=== PATIENT | male | born 1940 | race Caucasian/White ===

== ENCOUNTER → 2016-10-31 | Outpatient (CLI) | payer MEDICARE, BC ==
--- NOTE | 2016-10-31 15:37 | RADIOLOGY REPORT (SQ) ---
EXAM DESCRIPTION: KUB COMPLETED DATE/TIME: 10/31/2016 3:08 pm REASON FOR STUDY: CALCULUS OF KIDNEY N20.0 CALCULUS OF KIDNEY COMPARISON: 09/26/2015. NUMBER OF VIEWS: One view. TECHNIQUE: Supine radiographic image of the abdomen acquired. LIMITATIONS: None. FINDINGS: BOWEL GAS PATTERN: Normal bowel gas pattern. No dilated loops. CALCIFICATIONS: 8 mm stone in the lower pole left kidney. Prostatic calcification, pelvic arterial c alcifications and pelvic phleboliths. No definite ureteral stone. SOFT TISSUES: No gross mass or suggestion of organomegaly. HARDWARE: None in the abdomen. BONES: No acute fracture. No worrisome bone lesions. OTHER: No other significant finding. IMPRESSION: Left nephrolithiasis without evidence of ureteral stone. TECHNICAL DOCUMENTATION: JOB ID: [id number] [employer]- All Rights Reserved
== END ==
LOC: OD 14:53
PROVIDERS: ATTEND Nurse Practitioner Primary Care
DX: N20.0 Calculus of kidney (principal)
CPT/HCPCS: 74000

== ENCOUNTER 2016-12-17 09:18 | Day surgery (SDC) | payer MEDICARE, BC ==
--- NOTE | 2016-12-16 15:13 | HISTORY AND PHYSICAL E ---
History and Physical NAME: TERRELL JORDAN : 1940 AGE: 76Y ADMITTED: 12/17/2016 ROOM: REFERRING PHYSICIAN: Dr. Wellington HISTORY OF PRESENT ILLNESS: A 76-year-old patient for colon screening. SOCIAL HISTORY: . Smokes pack a day. Drinks occasional beer and occasional wine. PAST SURGICAL HISTORY: 1. Patient did have kidney stones removed by cystoscopy. 2. Vasectomy. 3. C4, 5, 6 fusion. 4. Colonoscopy about 10 years ago. REVIEW OF SYSTEMS: HEAD, EYES, EARS, NOSE, THROAT: Cataracts bilateral. RESPIRATORY: Negative. CARDIOVASCULAR: Hypertension, high cholesterol. ENDOCRINE: Diabetes. GASTROINTESTINAL: Colon screening. ONCOLOGY/HEMATOLOGY: Patient has history of skin lesion in the face. MUSCULOSKELETAL: Arthritis. FAMILY HISTORY: Father of old age, Alzheimer. Mom , CVA and old age. PHYSICAL EXAMINATION: GENERAL: Pleasant 76 years old. VITAL SIGNS: Blood pressure 140/80, pulse 80, respirations 20, temp is 98. HEAD, EYES, EARS, NOSE, THROAT: Normal. ABDOMEN: Soft. NEUROLOGIC: Negative. MEDICATIONS: 1. Aspirin. 2. Metformin. 3. Lovastatin. 4. Lisinopril. CONCLUSION: Colon screening. PLAN: Colonoscopy. DICTATING PHYSICIAN: KOJO WINSTON M.D. [id number] Y#: [id number] ID: [id number] JOB#: [id number] ACCT: [id number] cc:Joe BARBER M.D. >
[~2016-12-17 09:18] MED LIST: EPINEPHRINE INJ 1 MG/10 ML DISP.SYRIN ONE; FENTANYL CITRATE INJ/PF 100 MCG/2 ML AMPUL ONE; FLUMAZENIL INJ 0.5 MG/5 ML VIAL IV ONE; GLUCAGON,HUMAN RECOMB 1 MG INJ ONE; GLYCOPYRROLATE INJ 0.4 MG/2 ML VIAL ONE; LIDOCAINE 2% JELLY 30 ML TUBE ONE; MIDAZOLAM 2 MG/2 ML INJ ONE; NALOXONE HCL INJ/PF 0.4 MG/1 ML SDV ONE; ONDANSETRON HCL INJ/PF 4 MG/2 ML SDV ONE
[2016-12-17] MEDS: MIDAZOLAM 2 MG/2 ML INJ ONE ×3 (10:09→10:20)
[2016-12-17 11:46] LABS: ABSOLUTE BASOPHILS # (AUTO) 0.1 10^3/uL (0.0-0.2); ABSOLUTE EOSINOPHILS # (AUTO) 0.1 10^3/uL (0.0-0.6); ABSOLUTE LYMPHOCYTES (AUTO) 0.9 10^3/uL (0.5-4.7); ABSOLUTE MONOCYTES (AUTO) 0.7 10^3/uL (0.1-1.4); ABSOLUTE NEUT (AUTO) 6.9 10^3/uL (1.7-8.2); BASOPHILS % (AUTO) 0.7 % (0-2); EOSINOPHILS % (AUTO) 1.3 % (0-6); HEMATOCRIT 42.7 % (37.9-51.0); HEMOGLOBIN 13.9 g/dL (13.5-17.0); LYMPHOCYTES % (AUTO) 10.8 % (13-45); MEAN CORPUSCULAR HEMOGLOBIN 31.1 pg (27.0-33.4); MEAN CORPUSCULAR HGB CONC 32.6 g/dL (32.0-36.0); MEAN CORPUSCULAR VOLUME 96 fl (80-97); MONOCYTES % (AUTO) 7.6 % (3-13); RED BLOOD COUNT 4.46 10^6/uL (4.35-5.55); RED CELL DISTRIBUTION WIDTH 14.2 % (11.5-14.0); SEGMENTED NEUTROPHILS % (AUTO) 79.6 % (42-78); WHITE BLOOD COUNT 8.7 10^3/uL (4.0-10.5)
[2016-12-17 11:50] VITALS: BP 119/64
--- NOTE | 2016-12-17 13:25 | OPERATIVE REPORT E ---
Operative Report NAME: TERRELL JORDAN : 1940 AGE: 76Y DATE OF SURGERY: 12/17/2016 ROOM: PREOPERATIVE DIAGNOSIS: Colon screening. POSTOPERATIVE DIAGNOSES: 1. A 3-4 mm sessile polyp mid ascending colon. 2. Diverticulosis sigmoid descending colon. 3. A 1 mm anal polyp, small to biopsy, at the anal verge. PROCEDURE: Colonoscopy. SURGEON: KOJO WINSTON M.D. ANESTHESIA: Versed 2, fentanyl 100. TISSUE REMOVED OR ALTERED: Polyp biopsy ascending colon. PROCEDURE: Rectal exam shows anal verge polyp, 1-2 mm, small to biopsy, benign. Sigmoid descending colon diverticulosis. Transverse colon normal. Ascending colon 3 mm to 4 mm polyp mid ascending. Cecum normal. Scope withdrawn, cecum and ascending, biopsy obtained from the ascending colon. Transverse colon normal. Descending sigmoid diverticulosis and anal verge polyp. DISCHARGE PLAN: 1. Hold aspirin and nonsteroidal for 3 days. 2. Awaiting biopsy results. 3. Consideration followup colonoscopy 1 year. DICTATING PHYSICIAN: KOJO WINSTON M.D. [id number] PHY#: [id number] ID: [id number] JOB#: [id number] ACCT: [id number] cc:Joe BARBER M.D. >
--- NOTE | 2016-12-17 13:26 | DISCHARGE SUMMARY E ---
Discharge Summary NAME: TERRELL JORDAN : 1940 AGE: 76Y ADMITTED: 12/17/2016 DISCHARGED: 12/17/2016 HISTORY: A 76-year-old gentleman underwent colon screening. It shows sessile 3-4 mm polyp in ascending colon, 1 mm anal verge polyp, and sigmoid diverticulosis. DISCHARGE PLAN: Soft diet. Hold aspirin. Consider age and followup colonoscopy after 1 year. The patient is known to cancer of skin lesion and hypertension and diabetes. FINAL DIAGNOSES: Colon polyp right colon. Biopsy obtained. Soft diet. Hold aspirin. CBC. Consider followup colonoscopy 1 year. DICTATING PHYSICIAN: KOJO WINSTON M.D. [id number] PHY#: [id number] ID: [id number] JOB#: [id number] ACCT: [id number] cc:Joe BARBER M.D. >
== END 2016-12-17 11:30 | disposition home or self-care (01) ==
LOC: END 09:18
PROVIDERS: ATTEND Specialist
PROC: 0DBK8ZX Excision of Ascending Colon, Via Natural or Artificial Opening Endoscopic, Diagnostic (ICD-10-PCS; principal; 2016-12-17 10:00)
DX: Z12.11 Encounter for screening for malignant neoplasm of colon (principal); D12.2 Benign neoplasm of ascending colon; K57.30 Diverticulosis of large intestine without perforation or abscess without bleeding; K62.0 Anal polyp; F17.210 Nicotine dependence, cigarettes, uncomplicated; I10 Essential (primary) hypertension; E78.00 Pure hypercholesterolemia, unspecified; E11.9 Type 2 diabetes mellitus without complications; M19.90 Unspecified osteoarthritis, unspecified site; Z79.82 Long term (current) use of aspirin; Z79.84 Long term (current) use of oral hypoglycemic drugs; Z79.899 Other long term (current) drug therapy
CPT/HCPCS: 45380; 36415; 82962; 85025; 88305 ×2; J2250; J3010; J1610; J2405; J0171; J2310; J3490

== ENCOUNTER → 2017-05-14 | Outpatient (CLI) | payer MEDICARE, BC ==
--- NOTE | 2017-05-14 15:14 | RADIOLOGY REPORT (SQ) ---
EXAM DESCRIPTION: KUB COMPLETED DATE/TIME: 05/14/2017 2:54 pm REASON FOR STUDY: PERSONAL HISTORY OF URINARY CALCULI Z87.442 PERSONAL HISTORY OF URINARY CALCULI COMPARISON: 10/31/2016 NUMBER OF VIEWS: One view. TECHNIQUE: Supine radiographic image of the abdomen acquired. LIMITATIONS: None. FINDINGS: BOWEL GAS PATTERN: Normal bowel gas pattern. No dilated loops. CALCIFICATIONS: Small calcifications are seen in the calices of the left kidney, particularly in the lower pole. No ureteral calculus is appreciated. SOFT TISSUES: No gross mass or suggestion of organomegaly. HARDWARE: None in the abdomen. BONES: No acute fracture. No worrisome bone lesions. OTHER: No other significant finding. IMPRESSION: Left nephrolithiasis. TECHNICAL DOCUMENTATION: JOB ID: [id number] [employer]- All Rights Reserved
== END ==
LOC: OD 14:36
PROVIDERS: ATTEND Nurse Practitioner Primary Care
DX: N20.0 Calculus of kidney (principal); Z87.442 Personal history of urinary calculi
CPT/HCPCS: 74000

== ENCOUNTER → 2017-11-10 | Outpatient (CLI) | payer MEDICARE, BC ==
--- NOTE | 2017-11-10 14:37 | RADIOLOGY REPORT (SQ) ---
EXAM DESCRIPTION: KUB COMPLETED DATE/TIME: 11/10/2017 1:54 pm REASON FOR STUDY: MONITOR RENAL STONE COMPARISON: 05/14/2017 NUMBER OF VIEWS: One view. TECHNIQUE: Supine radiographic image of the abdomen acquired. LIMITATIONS: None. FINDINGS: BOWEL GAS PATTERN: Normal bowel gas pattern. No dilated loops. CALCIFICATIONS: Stable left renal calculi. The right renal shadow is partially obscured by overlyin g bowel gas and fecal material. Stable small calcified phleboliths and prostatic calculi. SOFT TISSUES: No gross mass or suggestion of organomegaly. HARDWARE: None in the abdomen. BONES: No acute fracture. No worrisome bone lesions. OTHER: No other significant finding. IMPRESSION: 1 No significant interval changes since the prior study dated 05/14/2017. The gas patter n is nonspecific. 2 Left renal calculi. TECHNICAL DOCUMENTATION: JOB ID: [id number] [employer]- All Rights Reserved Reading location - IP/workstation name: [email or web address]
== END ==
LOC: RAD 13:40
PROVIDERS: ATTEND Nurse Practitioner Primary Care
DX: N20.0 Calculus of kidney (principal)
CPT/HCPCS: 74018

== ENCOUNTER → 2018-05-12 | Outpatient (CLI) | payer MEDICARE, BC | LOC: OD 14:06 | PROVIDERS: ATTEND Nurse Practitioner Primary Care | DX: M79.605 Pain in left leg (principal); M79.604 Pain in right leg | CPT/HCPCS: 36415; 85379 ==